=== PATIENT | female | born 1945 | race Caucasian/White ===

== ENCOUNTER 2024-04-08 08:45 | Day surgery (SDC) | payer MEDICARE, OTHER ==
[~2024-04-08] VITALS: Ht 162.6 cm; Wt 74.3 kg
[~2024-04-08 08:45] MED LIST: ALPR.25; Balanced Salt Epinephrine Irrigation Solution 500 mL IR SCH; CYCL0.05OP BOTHEYES; ELIQUIS2.5 MG PO; ESCI20 PO; Fibercon625 MG PO; LEVSOD112; Lidocaine HCl/Pf 1% 5 ML VIAL XX SCH; Moxifloxacin HCL 0.5 MG/0.1 ML 0.4MLSYR RIGHTEYE SCH; NS 500 ML IV ONE; PHENYLEPHRINE\\TROPICAMIDE\\TETRACAINE OPHTHALMIC DILATING SOLN RIGHTEYE PRN; Povidone-Iodine 450 DROP/30 ML Solution RIGHTEYE SCH; ROSUVASTATIN CAL5 MG
[2024-04-08] MEDS ORDERED: OMEP20ER (09:17)
[2024-04-08] MEDS ORDERED: FentaNYL Citrate 50 MCG/ML 2 ML Injection ONE (09:20)
[2024-04-08] MEDS ORDERED: Midazolam HCl 1MG / ML 2ML Vial ONE (09:20)
[2024-04-08] MEDS ORDERED: NS 1,000 ML IV ONE (09:23)
[2024-04-08 10:28] VITALS: BP 148/71
== END 2024-04-08 10:43 | disposition home or self-care (01) ==
LOC: ORSCSDS 08:45
PROVIDERS: Student in an Organized Health Care Education/Training Program
PROC: 08RJ3JZ Replacement of Right Lens with Synthetic Substitute, Percutaneous Approach (ICD-10-PCS; principal; 2024-04-08 10:00)
DX: H25.813 Combined forms of age-related cataract, bilateral (principal); Z87.891 Personal history of nicotine dependence; E03.9 Hypothyroidism, unspecified; F41.9 Anxiety disorder, unspecified; Z86.718 Personal history of other venous thrombosis and embolism; Z86.711 Personal history of pulmonary embolism; Z79.01 Long term (current) use of anticoagulants; Z79.899 Other long term (current) drug therapy
CPT/HCPCS: J2250; J3010; J7040; V2632

== ENCOUNTER 2024-04-22 09:19 | Day surgery (SDC) | payer MEDICARE, OTHER ==
[~2024-04-22] VITALS: Ht 162.6 cm; Wt 73.8 kg
[~2024-04-22 09:19] MED LIST changes: +Moxifloxacin HCL 0.5 MG/0.1 ML 0.4MLSYR LEFTEYE SCH; -Moxifloxacin HCL 0.5 MG/0.1 ML 0.4MLSYR RIGHTEYE SCH; +OMEP20ER; +PHENYLEPHRINE\\TROPICAMIDE\\TETRACAINE OPHTHALMIC DILATING SOLN LEFTEYE PRN; -PHENYLEPHRINE\\TROPICAMIDE\\TETRACAINE OPHTHALMIC DILATING SOLN RIGHTEYE PRN; +Povidone-Iodine 450 DROP/30 ML Solution LEFTEYE SCH; -Povidone-Iodine 450 DROP/30 ML Solution RIGHTEYE SCH
[2024-04-22] MEDS ORDERED: ESCI20 (09:43)
[2024-04-22] MEDS ORDERED: GABA100 (09:44)
[2024-04-22] MEDS ORDERED: NS 1,000 ML IV ONE ×2 (09:50)
[2024-04-22] MEDS ORDERED: Midazolam HCl 1MG / ML 2ML Vial ONE (10:39)
[2024-04-22] MEDS ORDERED: FentaNYL Citrate 50 MCG/ML 2 ML Injection ONE (10:39)
[2024-04-22 11:26] VITALS: BP 167/84
== END 2024-04-22 11:20 | disposition home or self-care (01) ==
LOC: ORSCSDS 09:19
PROVIDERS: Student in an Organized Health Care Education/Training Program
PROC: 08RK3JZ Replacement of Left Lens with Synthetic Substitute, Percutaneous Approach (ICD-10-PCS; principal; 2024-04-22 10:30)
DX: H25.812 Combined forms of age-related cataract, left eye (principal); Z96.1 Presence of intraocular lens; E03.9 Hypothyroidism, unspecified; E05.00 Thyrotoxicosis with diffuse goiter without thyrotoxic crisis or storm; K21.9 Gastro-esophageal reflux disease without esophagitis; F41.9 Anxiety disorder, unspecified; Z86.718 Personal history of other venous thrombosis and embolism; Z86.711 Personal history of pulmonary embolism; Z79.01 Long term (current) use of anticoagulants; Z79.899 Other long term (current) drug therapy; Z87.891 Personal history of nicotine dependence
CPT/HCPCS: J2250; J3010; J7040; V2632

== ENCOUNTER → 2024-08-21 | Outpatient (CLI) | payer MEDICARE, OTHER ==
[~2024-08-21] MED LIST changes: -Balanced Salt Epinephrine Irrigation Solution 500 mL IR SCH; +ESCI20; +GABA100; -Lidocaine HCl/Pf 1% 5 ML VIAL XX SCH; -Moxifloxacin HCL 0.5 MG/0.1 ML 0.4MLSYR LEFTEYE SCH; -NS 500 ML IV ONE; -PHENYLEPHRINE\\TROPICAMIDE\\TETRACAINE OPHTHALMIC DILATING SOLN LEFTEYE PRN; -Povidone-Iodine 450 DROP/30 ML Solution LEFTEYE SCH
== END ==
LOC: LAB 17:11 → LAB SHORT 17:11
DX: R82.81 Pyuria (principal)
CPT/HCPCS: 87077; 87086; 87186